=== PATIENT | female | born 1975 | race African-American/Black ===

== ENCOUNTER 2019-03-04 12:02 | Emergency (ER) | payer SELFPAY ==
[2019-03-04 12:28] LABS: ADD MAN DIFF? NO
[2019-03-04 12:30] LABS: BASOPHILS % 0.4 % (0.0-2.0); EOSINOPHILS # 0.3 10^3/ul (0.0-0.5); EOSINOPHILS % 2.8 % (0.0-7.0); HEMATOCRIT 31.8 % (37.0-47.0); HEMOGLOBIN 9.7 g/dl (12.0-16.0); LYMPHOCYTES # 3.4 10^3/ul (0.8-2.9); LYMPHOCYTES % 34.8 % (15.0-51.0); MEAN CORPUSCULAR HEMOGLOBIN 25.1 pg (29.0-33.0); MEAN CORPUSCULAR HGB CONC 30.5 g/dl (32.0-37.0); MEAN CORPUSCULAR VOLUME 82.4 fl (82.0-101.0); MEAN PLATELET VOLUME 9.9 fl (7.4-10.4); MONOCYTE # 0.7 10^3/ul (0.3-0.9); MONOCYTES % 7.6 % (0.0-11.0); NEUTROPHIL # 5.3 10^3/ul (1.6-7.5); NEUTROPHILS % 54.2 % (39.0-77.0); PLATELET COUNT 365 10^3/UL (140-415); RED BLOOD COUNT 3.86 10^6/ul (4.20-5.40); RED CELL DISTRIBUTION WIDTH 18.2 % (11.5-14.5)
[2019-03-04 12:30] LABS: WHITE BLOOD COUNT 9.7 10^3/ul (4.8-10.8)
[2019-03-04] MEDS: SOD CHLORIDE 0.9% 1,000 ML IV (12:31)
[2019-03-04] MEDS: LORAZEPAM 2 MG INJ IV (12:31)
[2019-03-04 12:53] LABS: INR 0.95; PROTIME 12.8 Sec (11.9-14.9)
[2019-03-04 12:55] LABS: ALANINE AMINOTRANSFERASE 15 IU/L (13-69); ALBUMIN 4.2 g/dl (3.3-4.9); ALKALINE PHOSPHATASE 72 IU/L (42-121); ANION GAP 12 (5-13); ASPARTATE AMINO TRANSFERASE 22 IU/L (15-46); BILIRUBIN,INDIRECT 0.4 mg/dl (0-1.1); BILIRUBIN,TOTAL 0.4 mg/dl (0.2-1.3); BLOOD UREA NITROGEN 15 mg/dl (7-20); CALCIUM 9.5 mg/dl (8.4-10.2); CARBON DIOXIDE 26 mmol/L (21-31); CHLORIDE 107 mmol/L (97-110); CREATININE 0.86 mg/dl (0.44-1.00); Estimated GFR > 60 mL/min (>60); GLUCOSE 148 mg/dl (70-220); POTASSIUM 3.6 mmol/L (3.5-5.1); SODIUM 145 mmol/L (135-144); TOTAL PROTEIN 8.4 g/dl (6.1-8.1)
[2019-03-04 13:06] LABS: TROPONIN-I < 0.012 ng/ml (0.000-0.120)
[2019-03-04] MEDS: DIPHENHYDRAMINE 50 MG INJ IV (13:15)
[2019-03-04 13:16] LABS: D-DIMER 598.96 ng/ml (<460)
[2019-03-04] MEDS ORDERED: IOHEXOL 100 ML (13:45)
[2019-03-04] MEDS ORDERED: SOD CHLORIDE 0.9% 100 ML (13:45)
[2019-03-04] MEDS: PROPRANOLOL 40 MG TAB PO (14:48)
== END 2019-03-04 15:17 | disposition home or self-care (01) ==
LOC: E/R 12:02
DX: R00.2 Palpitations (principal); R07.9 Chest pain, unspecified
CPT/HCPCS: 36415; 71045; 71275; 80053; 81025; 84443; 84484; 85025; 85378; 85610; 93005; 96374; 96375; 99285-25